=== PATIENT | male | born 1990 | race Hispanic/Latino ===

== ENCOUNTER 2017-08-22 13:08 | Emergency (ER) | payer MEDICAID ==
[~2017-08-22] VITALS: Ht 177.8 cm; Wt 113.4 kg
[2017-08-22] MEDS ORDERED: ONDANSETRON ODT8 MG PO (14:32)
[2017-08-22] MEDS ORDERED: FLOMAX0.4 MG PO (14:32)
[2017-08-22] MEDS ORDERED: NORCO 10-325 T1 EACH PO (14:32)
== END 2017-08-22 15:05 | disposition home or self-care (01) ==
LOC: ED 13:08
DX: N13.2 Hydronephrosis with renal and ureteral calculous obstruction (principal); R11.2 Nausea with vomiting, unspecified
CPT/HCPCS: 36415; 74177; 80053; 81001; 82150; 83690; 85025; 96361; 96374; 96375; 99284; J1170; J1885; J2405; J7030; Q9967